=== PATIENT | male | born 1975 | race African-American/Black ===

== ENCOUNTER 2019-08-24 08:07 | Observation (INO) | payer OTHER ==
--- NOTE | 2019-08-24 10:28 | ER Document Report ---
ED GI Bleed / Rectal Pain - General Chief Complaint: Bloody Stools Stated Complaint: BLOODY STOOL/DIARRHEA/ABDOMINAL PAIN Time Seen by Provider: 08/24/19 10:16 Notes: 43-year-old -[place] male presents with 5-day history of intractable d iarrhea. States it started with loose stool and in the past couple of days noted that there is been blood mixed in with stool. Denies use of any NSAIDs or any anticoagulant medications. No prior history of colitis or abdominal issues. Denies any fever nausea without any vomiting is taking Pepto-Bismol and Imodium with no relief. She is having about 5 bowel movements per day. Feels generally weak but no loss of consciousness. Eyes any suspicion of any food or drinks that he may have taken. However he does note that on Thursday last week just before Riddhi was Thanksgiving dinner at work and the day after he began having symptoms of diarrhea. Denies any other medical problems. TRAVEL OUTSIDE OF THE [place] IN LAST 30 DAYS: No - Related Data Allergies/Adverse Reactions: No Known Allergies Allergy (Verified 08/24/19 11:14) Past Medical History - Social History Smoking Status: Never Smoker Chew tobacco use (# tins/day): No Frequency of alcohol use: None Drug Abuse: None Family History: None Patient has suicidal ideation: No Patient has homicidal ideation: No Review of Systems - Review of Systems Constitutional: Malaise, Weakness, Recent illness EENT: Other - Wears glasses Cardiovascular: No symptoms reported Respiratory: No symptoms reported Gastrointestinal: See HPI Genitourinary: No symptoms reported Male Genitourinary: No symptoms reported Musculoskeletal: No symptoms reported Skin: No symptoms reported Hematologic/Lymphatic: No symptoms reported Neurological/Psychological: No symptoms reported Physical Exam - Vital signs Vitals: Temp Pulse Resp BP Pulse Ox 98.8 F 73 20 116/75 100 08/24/19 08:18 08/24/19 08:18 08/24/19 08:18 08/24/19 08:18 08/24/19 08:18 Interpretation: Normal - General General appearance: Appears well, Alert - HEENT Head: Normocephalic, Atraumatic Eyes: Normal Pupils: PERRL - Respiratory Respiratory status: No respiratory distress Chest status: Nontender Breath sounds: Normal Chest palpation: Normal - Cardiovascular Rhythm: Regular Heart sounds: Normal auscultation Murmur: No - Abdominal Inspection: Normal Distension: No distension Bowel sounds: Normal Tenderness: Nontender Organomegaly: No organomegaly - Rectal Stool: Heme positive, Bloody Hemorrhoids: Internal Prostate: Normal - Back Back: Normal, Nontender - Extremities General upper extremity: Normal inspection, Nontender, Normal color, Normal ROM, Normal temperature General lower extremity: Normal inspection, Nontender, Normal color, Normal ROM, Normal temperature, Normal weight bearing. No: Tata's sign - Neurological Neuro grossly intact: Yes Cognition: Normal Orientation: AAOx4 Kem Coma Scale Eye Opening: Spontaneous [place] Coma Scale Verbal: Oriented [place] Coma Scale Motor: Obeys Commands Kem Coma Scale Total: 15 Speech: Normal Motor strength normal: LUE, RUE, LLE, RLE Sensory: Normal - Psychological Associated symptoms: Normal affect, Normal mood - Skin Skin Temperature: Warm Skin Moisture: Dry Skin Color: Normal Course - Re-evaluation Re-evalutation: 08/24/19 14:53 Patient remains hemodynamically stable. No active lower GI bleed at the moment. Episodic pains do come and go. - Vital Signs Vital signs: Temp Pulse Resp BP Pulse Ox 99.8 F 73 20 122/72 100 08/24/19 14:11 08/24/19 08:25 08/24/19 13:33 08/24/19 13:33 08/24/19 12:01 - Laboratory Result Diagrams: 08/24/19 09:18 08/24/19 09:18 Laboratory results interpreted by me: 08/24/19 08/24/19 08/24/19 09:18 09:18 11:00 Hgb 12.8 L Band Neutrophils % 1 L Lymphocytes % (Manual) 9 L Monocytes % (Manual) 23 H Abs Monocytes (Manual) 2.0 H Sodium 134.0 L Chloride 96 L Urine Protein 30 H Labs- Entire Visit 08/24/19 08/24/19 08/24/19 09:18 09:18 09:18 WBC 8.8 RBC 4.75 Hgb 12.8 L Hct 38.1 MCV 80 MCH 27.0 MCHC 33.6 RDW 13.2 Plt Count 294 Lymph % (Auto) Not Reportable [place] % (Auto) Not Reportable Eos % (Auto) Not Reportable Baso % (Auto) Not Reportable Absolute Neuts (auto) Not Reportable Absolute Lymphs (auto) Not Reportable Absolute Monos (auto) Not Reportable Absolute Eos (auto) Not Reportable Absolute Basos (auto) Not Reportable Total Counted 100 Seg Neutrophils % Not Reportable Seg Neuts % (Manual) 67 Band Neutrophils % 1 L Lymphocytes % (Manual) 9 L Monocytes % (Manual) 23 H Eosinophils % (Manual) 0 Basophils % (Manual) 0 Abs Neuts (Manual) 6.0 Abs Lymphs (Manual) 0.8 Abs Monocytes (Manual) 2.0 H Absolute Eos (Manual) 0.0 Abs Basophils (Manual) 0.0 Large Platelets PRESENT Platelet Comment ADEQUATE Polychromasia SLIGHT Sodium 134.0 L Potassium 4.3 Chloride 96 L Carbon Dioxide 29 Anion Gap 9 BUN 9 Creatinine 1.17 Est GFR ( Amer) > 60 Est GFR (MDRD) Non-Af > 60 Glucose 84 Lactic Acid (Sepsis) 0.9 Calcium 8.9 Total Bilirubin 0.3 Direct Bilirubin 0.1 Neonat Total Bilirubin Not Reportable Neonat Direct Bilirubin Not Reportable Neonat Indirect Bili Not Reportable AST 28 ALT 19 Alkaline Phosphatase 64 Total Protein 6.6 Albumin 3.6 Lipase 173.0 Urine Color Urine Appearance Urine pH Ur Specific [place] Urine Protein Urine Glucose (UA) Urine Ketones Urine Blood Urine Nitrite Urine Bilirubin Urine Urobilinogen Ur Leukocyte Esterase Urine WBC (Auto) Urine RBC (Auto) Urine Mucus (Auto) Urine Ascorbic Acid POC Stool Occult Blood Urine Opiates Screen Urine Methadone Screen Ur Barbiturates Screen Ur Phencyclidine Scrn Ur Amphetamines Screen U Benzodiazepines Scrn Urine Cocaine Screen U Marijuana (THC) Screen 08/24/19 08/24/19 08/24/19 09:30 11:00 11:00 WBC RBC Hgb Hct MCV MCH MCHC RDW Plt Count Lymph % (Auto) [place] % (Auto) Eos % (Auto) Baso % (Auto) Absolute Neuts (auto) Absolute Lymphs (auto) Absolute Monos (auto) Absolute Eos (auto) Absolute Basos (auto) Total Counted Seg Neutrophils % Seg Neuts % (Manual) Band Neutrophils % Lymphocytes % (Manual) Monocytes % (Manual) Eosinophils % (Manual) Basophils % (Manual) Abs Neuts (Manual) Abs Lymphs (Manual) Abs Monocytes (Manual) Absolute Eos (Manual) Abs Basophils (Manual) Large Platelets Platelet Comment Polychromasia Sodium Potassium Chloride Carbon Dioxide Anion Gap BUN Creatinine Est GFR ( Amer) Est GFR (MDRD) Non-Af Glucose Lactic Acid (Sepsis) Calcium Total Bilirubin Direct Bilirubin Neonat Total Bilirubin Neonat Direct Bilirubin Neonat Indirect Bili AST ALT Alkaline Phosphatase Total Protein Albumin Lipase Urine Color YELLOW Urine Appearance SLIGHTLY-CLOUDY Urine pH 7.0 Ur Specific [place] 1.018 Urine Protein 30 H Urine Glucose (UA) NEGATIVE Urine Ketones NEGATIVE Urine Blood NEGATIVE Urine Nitrite NEGATIVE Urine Bilirubin NEGATIVE Urine Urobilinogen NEGATIVE Ur Leukocyte Esterase NEGATIVE Urine WBC (Auto) 1 Urine RBC (Auto) 1 Urine Mucus (Auto) RARE Urine Ascorbic Acid NEGATIVE POC Stool Occult Blood POSITIVE Urine Opiates Screen NEGATIVE Urine Methadone Screen NEGATIVE Ur Barbiturates Screen NEGATIVE Ur Phencyclidine Scrn NEGATIVE Ur Amphetamines Screen NEGATIVE U Benzodiazepines Scrn NEGATIVE Urine Cocaine Screen NEGATIVE U Marijuana (THC) Screen NEGATIVE - Diagnostic Test Radiology reviewed: Image reviewed, Reports reviewed Discharge - Discharge Clinical Impression: Lower GI bleed, Colitis Condition: Good Disposition: ADMITTED INPATIENT Admitting Provider: Erica (Hospitalist) Unit Admitted: Medical Floor
[2019-08-24] MEDS ORDERED: PANTOPRAZOLE SODIUM 40 MG VIAL IV ONE (10:49)
[2019-08-24 10:58] LABS: HEMATOCRIT 38.1 % (37.9-51.0); HEMOGLOBIN 12.8 g/dL (13.5-17.0); MEAN CORPUSCULAR HGB CONC 33.6 g/dL (32.0-36.0); MEAN CORPUSCULAR VOLUME 80 fl (80-97); PLATELET COUNT 294 10^3/uL (150-450); RED BLOOD COUNT 4.75 10^6/uL (4.35-5.55); RED CELL DISTRIBUTION WIDTH 13.2 % (11.5-14.0); WHITE BLOOD COUNT 8.8 10^3/uL (4.0-10.5)
[2019-08-24 11:08] LABS: ALBUMIN 3.6 g/dL (3.5-5.0); ALKALINE PHOSPHATASE 64 U/L (38-126); ANION GAP 9 (5-19); ASPARTATE AMINO TRANSFERASE 28 U/L (17-59); BILIRUBIN,DIRECT 0.1 mg/dL (0.0-0.4); BILIRUBIN,TOTAL 0.3 mg/dL (0.2-1.3); BLOOD UREA NITROGEN 9 mg/dL (7-20); CALCIUM 8.9 mg/dL (8.4-10.2); CARBON DIOXIDE 29 mmol/L (22-30); CHLORIDE 96 mmol/L (98-107); GLUCOSE 84 mg/dL (75-110); POTASSIUM 4.3 mmol/L (3.6-5.0); TOTAL PROTEIN 6.6 g/dL (6.3-8.2)
[2019-08-24 11:22] LABS: ABSOLUTE LYMPHOCYTES# (MANUAL) 0.8 10^3/uL (0.5-4.7); BAND NEUTROPHILS % (MANUAL) 1 % (3-5); BASOPHILS % (MANUAL) 0 % (0-2); EOSINOPHILS % (MANUAL) 0 % (0-6); LYMPHOCYTES % (MANUAL) 9 % (13-45); MONOCYTES % (MANUAL) 23 % (3-13); SEGMENTED NEUTROPHILS % (MAN) 67 % (42-78); TOTAL CELLS COUNTED 100
[2019-08-24 11:23] LABS: PLATELET COMMENT ADEQUATE; PLATELET LARGE PRESENT; POLYCHROMASIA SLIGHT
[2019-08-24 11:37] LABS: APPEARANCE,URINE SLIGHTLY-CLOUDY; BILIRUBIN,URINE NEGATIVE (NEGATIVE); COLOR,URINE YELLOW; GLUCOSE, URINE NEGATIVE (NEGATIVE); KETONES,URINE NEGATIVE (NEGATIVE); LEUKOCYTE ESTERASE,URINE NEGATIVE (NEGATIVE); NITRITE,URINE NEGATIVE (NEGATIVE); PROTEIN,URINE 30 mg/dL (NEGATIVE); URINE SPECIFIC GRAVITY 1.018; UROBILINOGEN,URINE NEGATIVE mg/dL (<2.0)
[2019-08-24 11:53] LABS: URINE AMPHETAMINES SCREEN NEGATIVE; URINE BARBITURATES SCREEN NEGATIVE; URINE BENZODIAZEPINES SCREEN NEGATIVE; URINE COCAINE SCREEN NEGATIVE; URINE MARIJUANA (THC) SCREEN NEGATIVE; URINE METHADONE SCREEN NEGATIVE; URINE PHENCYCLIDINE SCREEN NEGATIVE
--- NOTE | 2019-08-24 13:57 | RADIOLOGY REPORT (SQ) ---
EXAM DESCRIPTION: CT ABD/PELVIS WITH IV ORAL COMPLETED DATE/TIME: 08/24/2019 1:34 pm REASON FOR STUDY: diarrhea COMPARISON: None. TECHNIQUE: CT scan of the abdomen and pelvis performed using helical scanning technique with dynamic intravenous contrast injection. No oral contrast. Images reviewed with lung, soft tissue, and bone windows. Reconstructed coronal and sagittal MPR images reviewed. Delayed images for evaluation of the urinary system also acquired. All images stored on PACS. All CT scanners at this facility use dose modulation, iterative reconstruction, and/or weight based d osing when appropriate to reduce radiation dose to as low as reasonably achievable (ALARA). [facility]: Dose Right [facility]: CareDose [facility]: Dose Right [facility]: Teradose 4D [facility]: Boosted Boards CONTRAST TYPE AND DOSE: Contrast/concentration: Isovue 350.00 mg/ml; Total Contrast Delivered: 80.0 ml; Total Saline Delivered: 36.8 ml RENAL FUNCTION: Creatinine 1.17 milligrams/deciliter RADIATION DOSE: CT Rad equipment meets quality standard of care and radiation dose reduction techniq ues were employed. CTDIvol: 4.8 - 5.0 mGy. DLP: 522 mGy-cm.. LIMITATIONS: None. FINDINGS: LOWER CHEST: No acute findings. LIVER: The morphology of the liver is non cirrhotic. The portal veins are patent. There is no hepat ic mass. SPLEEN: No splenomegaly or splenic mass. PANCREAS: No acute abnormality. GALLBLADDER: No abnormality that is apparent on CT. ADRENAL GLANDS: No mass or asymmetry. RIGHT KIDNEY AND URETER: No solid mass, hydronephrosis, nephrolithiasis, hydroureter or ureterolithia sis. LEFT KIDNEY AND URETER: No solid mass, hydronephrosis, nephrolithiasis, hydroureter or ureterolithias is. AORTA AND VESSELS: No aneurysm or dissection of the abdominal aorta. Suspected compression of the le ft renal vein between the aorta and the SMA with prominent collateral vessels. RETROPERITONEUM: No retroperitoneal adenopathy, hemorrhage or mass. BOWEL AND PERITONEAL CAVITY: Long segment of circumferential mural thickening that extends from the h epatic flexure to the rectum consistent with a nonspecific infectious, inflammatory or ischemic colit is. There is no bowel obstruction. APPENDIX: Normal. PELVIS: Trace amount of free fluid in the in the cul de sac. The urinary bladder is nondistended. ABDOMINAL WALL: No masses or hernias. BONES: No acute findings. OTHER: No other finding. IMPRESSION: 1. Long segment of circumferential mural thickening that extends from the hepatic flexu re to the rectum consistent with a nonspecific infectious, inflammatory or ischemic colitis. There is no bowel obstruction. 2. 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 TECHNICAL DOCUMENTATION: JOB ID: [id number] Quality ID # [id number]: Final reports with documentation of one or more dose reduction techniques (e.g., Au tomated exposure control, adjustment of the mA and/or kV according to patient size, use of iterative reconstruction technique) 2010 [employer]- All Rights Reserved Reading location - IP/workstation name: [email or web address]
[2019-08-24] MEDS ORDERED: ONDANSETRON HCL INJ/PF 4 MG/2 ML SDV IV PRN (16:02)
[2019-08-24] MEDS ORDERED: ACETAMINOPHEN 325 MG TABLET PO PRN (16:02)
[2019-08-24] MEDS ORDERED: MAG HYDROX/AL HYDROX/SIMETH SUSP 30 ML UDCUP PO PRN (16:02)
[2019-08-24] MEDS ORDERED: PROMETHAZINE HCL INJ 25 MG/1 ML VIAL IV PRN (16:02)
[2019-08-24] MEDS ORDERED: ALBUTEROL SULFATE 0.083% NEB 2.5 MG/3 ML AMPUL NEB PRN (16:02)
[2019-08-24] MEDS ORDERED: OXYCODONE-ACETAMINOPHEN 5-325 MG TABLET PO PRN (16:02)
--- NOTE | 2019-08-24 19:41 | PDOC H&P ---
History of Present Illness Admission Date/PCP: 08/24/19 15:38 Patient complains of: Abdominal pain History of Present Illness: KADEN MEIER JR is a 43 year old male with no significant past medical history who presents to the emergency department today with a complaint of subjective fever, abdominal discomfort, and frequent diarrhea x5 days now with scant bright red blood. Patient denies questionable dietary intake or known sick contacts. His symptoms have been unresponsive to [id number] preparations. Evaluation in the emergency department reveals stable vital signs, unremarkable laboratory evaluation, with CT imaging revealing long segment of circumferential colitis. He is provided IV fluids and referred to the hospitalist service for admission and management of the above-stated complaints of findings. Past Medical History Medical History: None Past Surgical History Past Surgical History: Reports: None Social History Information Source: Patient Smoking Status: Never Smoker Electronic Cigarette use?: No Frequency of Alcohol Use: None Hx Recreational Drug Use: No Hx Prescription Drug Abuse: No - Advance Directive Resuscitation Status: Full Code Family History Family History: Hyperlipidemia, Hypertension Parental Family History Reviewed: Yes Children Family History Reviewed: Yes Sibling(s) Family History Reviewed.: Yes Medication/Allergy Home Medications: No Home Medications 08/24/19 Allergies/Adverse Reactions: No Known Allergies Allergy (Verified 08/24/19 11:14) Review of Systems Constitutional: PRESENT: fatigue, fever(s). ABSENT: chills, headache(s), weight gain, weight loss Eyes: ABSENT: visual disturbances Ears: ABSENT: hearing changes Cardiovascular: ABSENT: chest pain, dyspnea on exertion, edema, orthropnea, palpitations Respiratory: ABSENT: cough, hemoptysis Gastrointestinal: PRESENT: abdominal pain, diarrhea, nausea. ABSENT: constipation, hematemesis, hematochezia, vomiting Genitourinary: ABSENT: dysuria, hematuria Musculoskeletal: ABSENT: joint swelling Integumentary: ABSENT: rash, wounds Neurological: ABSENT: abnormal gait, abnormal speech, confusion, dizziness, focal weakness, syncope Psychiatric: ABSENT: anxiety, depression, homidical ideation, suicidal ideation Endocrine: ABSENT: cold intolerance, heat intolerance, polydipsia, polyuria Hematologic/Lymphatic: ABSENT: easy bleeding, easy bruising Physical Exam Vital Signs: Temp Pulse Resp BP Pulse Ox 99.8 F 73 22 H 102/34 L 100 08/24/19 14:11 08/24/19 08:25 08/24/19 17:32 08/24/19 17:32 08/24/19 15:01 Intake & Output 08/23/19 08/24/19 08/25/19 06:59 06:59 06:59 Intake Total 90 Balance 90 Weight 72.3 kg General appearance: PRESENT: no acute distress, well-developed, well-nourished Head exam: PRESENT: atraumatic, normocephalic Eye exam: PRESENT: conjunctiva pink, EOMI, PERRLA. ABSENT: scleral icterus Ear exam: PRESENT: normal external ear exam Mouth exam: PRESENT: moist, tongue midline Neck exam: ABSENT: carotid bruit, JVD, lymphadenopathy, thyromegaly Respiratory exam: PRESENT: clear to auscultation luisa. ABSENT: rales, rhonchi, wheezes Cardiovascular exam: PRESENT: RRR. ABSENT: diastolic murmur, rubs, systolic murmur Pulses: PRESENT: normal dorsalis pedis pul Vascular exam: PRESENT: normal capillary refill GI/Abdominal exam: PRESENT: normal bowel sounds, soft, tenderness - Generalized. ABSENT: distended, guarding, mass, organolmegaly, rebound Rectal exam: PRESENT: deferred Extremities exam: PRESENT: full ROM. ABSENT: calf tenderness, clubbing, pedal edema Neurological exam: PRESENT: alert, awake, oriented to person, oriented to place, oriented to time, oriented to situation, CN II-XII grossly intact. ABSENT: motor sensory deficit Psychiatric exam: PRESENT: appropriate affect, normal mood. ABSENT: homicidal i deation, suicidal ideation Skin exam: PRESENT: dry, intact, warm. ABSENT: cyanosis, rash Results Laboratory Results: 08/24/19 09:18 08/24/19 09:18 08/24/19 08/24/19 08/24/19 09:18 09:18 11:00 WBC 8.8 RBC 4.75 Hgb 12.8 L Hct 38.1 MCV 80 MCH 27.0 MCHC 33.6 RDW 13.2 Plt Count 294 Seg Neutrophils % Not Reportable Sodium 134.0 L Potassium 4.3 Chloride 96 L Carbon Dioxide 29 Anion Gap 9 BUN 9 Creatinine 1.17 Est GFR ( Amer) > 60 Glucose 84 Calcium 8.9 Total Bilirubin 0.3 AST 28 Alkaline Phosphatase 64 Total Protein 6.6 Albumin 3.6 Lipase 173.0 Urine Color YELLOW Urine Appearance SLIGHTLY-CLOUDY Urine pH 7.0 Ur Specific [place] 1.018 Urine Protein 30 H Urine Glucose (UA) NEGATIVE Urine Ketones NEGATIVE Urine Blood NEGATIVE Urine Nitrite NEGATIVE Ur Leukocyte Esterase NEGATIVE Urine WBC (Auto) 1 Urine RBC (Auto) 1 Impressions: Abdomen/Pelvis CT 08/24/19 10:50 IMPRESSION: 1. Long segment of circumferential mural thickening that extends from the hepatic flexure to the rectum consistent with a nonspecific infectious, inflammatory or ischemic colitis. There is no bowel obstruction. 2. 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 Assessment and Plan - Diagnosis (1) Colitis Is this a current diagnosis for this admission?: Yes Plan: Patient is admitted to the medical floor. We will continue gentle IV fluids. He is empirically placed on IV Cipro and p.o. metronidazole. Blood and stool cultures pending. Antiemetics and analgesics as needed. Soft, low residue diet. Follow-up CBC. (2) Diarrhea Qualifiers: Diarrhea type: unspecified type Qualified Code(s): R19.7 - Diarrhea, unspecified Is this a current diagnosis for this admission?: Yes Plan: Secondary to #1. Evaluation management as above. Once a stool studies are negative and infectious process has been ruled out, can consider Imodium or Lomotil. (3) Abdominal pain Is this a current diagnosis for this admission?: Yes Plan: Secondary to #1. Analgesics as needed. Evaluation management as above. (4) Lower GI bleed Is this a current diagnosis for this admission?: Yes Plan: Secondary to #1. Follow-up H&H. Remaining evaluation management as above. - Time Time Spent with patient: 35 or more minutes Medications reviewed and adjusted accordingly: Yes Anticipated discharge: Home Within: within 24 hours
[2019-08-24] MEDS: NORMAL SALINE 1000 ML 1,000 ML IV PRN (21:56)
[2019-08-24] MEDS: CIPROFLOXACIN 400 MG/D5W RTU 400 MG/200 ML RTUPB IV SCH (21:59)
[2019-08-24] MEDS: METRONIDAZOLE 500 MG TABLET PO SCH (22:00)
[2019-08-24] MEDS: HEPARIN SOD (PORCINE) 5,000 UNIT/ML 1 ML VIAL SUBCUT SCH (22:02)
[2019-08-25] MEDS ORDERED: INFLUENZA QUAD (6MOS+) 2019-20 VAC 0.5 ML SYR IM ONE (01:09)
[2019-08-25] MEDS: HEPARIN SOD (PORCINE) 5,000 UNIT/ML 1 ML VIAL SUBCUT SCH ×3 (05:10→21:45)
[2019-08-25] MEDS: METRONIDAZOLE 500 MG TABLET PO SCH ×3 (05:11→23:17)
[2019-08-25] MEDS: PANTOPRAZOLE SODIUM 20 MG TABLET.DR PO SCH (05:11)
[2019-08-25] MEDS: NORMAL SALINE 1000 ML 1,000 ML IV PRN ×2 (07:00→21:50)
[2019-08-25 07:02] LABS: HEMATOCRIT 35.7 % (37.9-51.0); HEMOGLOBIN 12.2 g/dL (13.5-17.0); MEAN CORPUSCULAR HEMOGLOBIN 26.9 pg (27.0-33.4); MEAN CORPUSCULAR HGB CONC 34.1 g/dL (32.0-36.0); MEAN CORPUSCULAR VOLUME 79 fl (80-97); PLATELET COUNT 277 10^3/uL (150-450); RED BLOOD COUNT 4.52 10^6/uL (4.35-5.55); WHITE BLOOD COUNT 7.2 10^3/uL (4.0-10.5)
[2019-08-25 07:23] LABS: ANION GAP 8 (5-19); BLOOD UREA NITROGEN 7 mg/dL (7-20); CALCIUM 8.5 mg/dL (8.4-10.2); CARBON DIOXIDE 26 mmol/L (22-30); CHLORIDE 102 mmol/L (98-107); GLUCOSE 83 mg/dL (75-110); POTASSIUM 4.3 mmol/L (3.6-5.0)
[2019-08-25] MEDS: CIPROFLOXACIN 400 MG/D5W RTU 400 MG/200 ML RTUPB IV SCH ×2 (09:40→21:50)
[2019-08-25] MEDS ORDERED: ONDANSETRON HCL INJ/PF 4 MG/2 ML SDV IV PRN (14:30)
[2019-08-25] MEDS ORDERED: PROMETHAZINE HCL INJ 25 MG/1 ML VIAL IV PRN (14:30)
--- NOTE | 2019-08-25 19:27 | PDOC PROGRESS REPORT ---
Subjective Progress Note for:: 08/25/19 Subjective:: The patient is a 43-year-old male without significant past medical history who was admitted 08/24/2019 for colitis. Patient was seen on morning rounds. He was found resting in bed comfortably. He does report continued abdominal discomfort, slight nausea, and frequent loose stools. He does report that the frequency of stools has decreased to today. He also noted that his last bowel movement did not have bright red blood. Overall, he is feeling somewhat better and is tolerating 100% of meals. He denies fever, chills, chest pain, palpitations, dyspnea, orthopnea, emesis. He has no other questions or concerns at this time. No concerns per nursing. Reason For Visit: COLITIS Physical Exam Vital Signs: Temp Pulse Resp BP Pulse Ox 98.6 F 61 18 138/73 H 100 08/25/19 16:00 08/25/19 16:00 08/25/19 16:00 08/25/19 16:00 08/25/19 16:00 Intake & Output 08/24/19 08/25/19 08/26/19 06:59 06:59 06:59 Intake Total 1710 1210 Balance 1710 1210 Weight 70.6 kg 70.6 kg General appearance: PRESENT: no acute distress, well-developed, well-nourished Head exam: PRESENT: atraumatic, normocephalic Eye exam: PRESENT: conjunctiva pink, EOMI, PERRLA. ABSENT: scleral icterus Ear exam: PRESENT: normal external ear exam Mouth exam: PRESENT: moist, tongue midline Neck exam: ABSENT: carotid bruit, JVD, lymphadenopathy, thyromegaly Respiratory exam: PRESENT: clear to auscultation luisa. ABSENT: rales, rhonchi, wheezes Cardiovascular exam: PRESENT: RRR. ABSENT: diastolic murmur, rubs, systolic murmur Pulses: PRESENT: normal dorsalis pedis pul Vascular exam: PRESENT: normal capillary refill GI/Abdominal exam: PRESENT: normal bowel sounds, soft. ABSENT: distended, guarding, mass, organolmegaly, rebound, tenderness Rectal exam: PRESENT: deferred Extremities exam: PRESENT: full ROM. ABSENT: calf tenderness, clubbing, pedal edema Neurological exam: PRESENT: alert, awake, oriented to person, oriented to place, oriented to time, oriented to situation, CN II-XII grossly intact. ABSENT: motor sensory deficit Psychiatric exam: PRESENT: appropriate affect, normal mood. ABSENT: homicidal ideation, suicidal ideation Skin exam: PRESENT: dry, intact, warm. ABSENT: cyanosis, rash Results Laboratory Results: 08/25/19 06:48 08/25/19 06:48 08/25/19 08/25/19 06:48 06:48 WBC 7.2 RBC 4.52 Hgb 12.2 L Hct 35.7 L MCV 79 L MCH 26.9 L MCHC 34.1 RDW 13.0 Plt Count 277 Sodium 136.3 L Potassium 4.3 Chloride 102 Carbon Dioxide 26 Anion Gap 8 BUN 7 Creatinine 1.14 Est GFR ( Amer) > 60 Glucose 83 Calcium 8.5 Impressions: Abdomen/Pelvis CT 08/24/19 10:50 IMPRESSION: 1. Long segment of circumferential mural thickening that extends from the hepatic flexure to the rectum consistent with a nonspecific infectious, inflammatory or ischemic colitis. There is no bowel obstruction. 2. 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 Assessment and Plan - Diagnosis (1) Colitis Is this a current diagnosis for this admission?: Yes Plan: Slight improvement today; decreased abdominal discomfort and stool output. Blood cultures are pending. Stool cultures pending. Patient is admitted to the medical floor. We will continue gentle IV fluids. He is empirically placed on IV Cipro and p.o. metronidazole. Antiemetics and analgesics as needed. Soft, low residue diet. Follow-up CBC. (2) Diarrhea Qualifiers: Diarrhea type: unspecified type Qualified Code(s): R19.7 - Diarrhea, unspecified Is this a current diagnosis for this admission?: Yes Plan: Secondary to #1. Evaluation management as above. Once a stool studies are negative and infectious process has been ruled out, can consider Imodium or Lomotil. (3) Abdominal pain Is this a current diagnosis for this admission?: Yes Plan: Secondary to #1. Analgesics as needed. Evaluation management as above. (4) Lower GI bleed Is this a current diagnosis for this admission?: Yes Plan: Secondary to #1. Follow-up H&H. Overall stable. Remaining evaluation management as above. - Time Time Spent with patient: 15-24 minutes Medications reviewed and adjusted accordingly: Yes Anticipated discharge: Home Within: within 24 hours
[2019-08-26] MEDS: HEPARIN SOD (PORCINE) 5,000 UNIT/ML 1 ML VIAL SUBCUT SCH ×2 (06:26→13:28)
[2019-08-26] MEDS: PANTOPRAZOLE SODIUM 20 MG TABLET.DR PO SCH (06:27)
[2019-08-26] MEDS: METRONIDAZOLE 500 MG TABLET PO SCH ×2 (06:27→13:38)
[2019-08-26 06:47] LABS: HEMATOCRIT 35.1 % (37.9-51.0); HEMOGLOBIN 11.8 g/dL (13.5-17.0); MEAN CORPUSCULAR HEMOGLOBIN 26.9 pg (27.0-33.4); MEAN CORPUSCULAR HGB CONC 33.7 g/dL (32.0-36.0); MEAN CORPUSCULAR VOLUME 80 fl (80-97); PLATELET COUNT 291 10^3/uL (150-450); RED BLOOD COUNT 4.41 10^6/uL (4.35-5.55); WHITE BLOOD COUNT 6.7 10^3/uL (4.0-10.5)
[2019-08-26 07:13] LABS: BLOOD UREA NITROGEN 8 mg/dL (7-20); CALCIUM 8.7 mg/dL (8.4-10.2); CHLORIDE 106 mmol/L (98-107); GLUCOSE 84 mg/dL (75-110); POTASSIUM 4.7 mmol/L (3.6-5.0)
[2019-08-26 07:20] LABS: ANION GAP 6 (5-19); CARBON DIOXIDE 27 mmol/L (22-30)
[2019-08-26] MEDS: NORMAL SALINE 1000 ML 1,000 ML IV PRN (07:31)
[2019-08-26] MEDS: CIPROFLOXACIN 400 MG/D5W RTU 400 MG/200 ML RTUPB IV SCH (10:20)
[2019-08-26 16:45] VITALS: BP 117/77
--- NOTE | 2019-08-30 12:04 | PDOC DISCHARGE SUMMARY ---
Impression - Admit/DC Date/PCP Admission Date/Primary Care Provider: 08/24/19 15:38 Discharge Date: 08/26/19 - Discharge Diagnosis (1) Colitis Is this a current diagnosis for this admission?: Yes (2) Diarrhea Is this a current diagnosis for this admission?: Yes (3) Abdominal pain Is this a current diagnosis for this admission?: Yes (4) Lower GI bleed Is this a current diagnosis for this admission?: Yes (5) Campylobacter diarrhea Is this a current diagnosis for this admission?: Yes - Additional Information Resuscitation Status: Full Code Discharge Diet: Regular, Other (Comments) Discharge Activity: Activity As Tolerated, Balance Activity w/Rest, Slowly Increase Activity Referrals: [facility] [Outside] - 09/01/19 11:30 am (Follow up within 1 week.) Prescriptions: Ciprofloxacin HCl [Cipro 750 mg Tablet] 750 mg PO BID #10 tablet Home Medications: Acetaminophen [Tylenol 325 mg Tablet] 650 mg PO Q4HP PRN tablet 08/26/19 Ciprofloxacin HCl [Cipro 750 mg Tablet] 750 mg PO BID #10 tablet 08/26/19 History of Present Illiness History of Present Illness: KADEN MEIER JR is a 43 year old male with no significant past medical history who presents to the emergency department today with a complaint of subjective fever, abdominal discomfort, and frequent diarrhea x5 days now with scant bright red blood. Patient denies questionable dietary intake or known sick contacts. His symptoms have been unresponsive to [id number] preparations. Evaluation in the emergency department reveals stable vital signs, unremarkable laboratory evaluation, with CT imaging revealing long segment of circumferential colitis. He is provided IV fluids and referred to the hospitalist service for admission and management of the above-stated complaints of findings. Hospital Course Hospital Course: The patient was admitted to the medical floor. He was provided generous IV fluid resuscitation and started on a soft, low residue diet which he has tolerated well. He was empirically placed on IV ciprofloxacin and p.o. Flagyl for treatment of colitis. His symptoms gradually improved, however, he does continue to have scant bright red blood per rectum with soft stool. Blood cultures are negative. Will culture is growing Campylobacter jejuni. The patient is discharged to home in stable condition. He is instructed to complete his full course of p.o. Cipro. He is encouraged to drink plenty of water and to eat as tolerated. He is advised of the importance of good hand drink. We discussed the continued bright red blood per rectum and warning signs that should prompt him to return to the emergency department. He was placed out of work until he has completed the full course of ciprofloxacin. He is advised to answer any phone calls that he may receive from the health department and is assured that this is for tracking purposes and not due to any wrongdoing on his part. He is encouraged to follow-up with his primary care provider within 1 week and to return to the emergency department as needed for concerning symptoms. Physical Exam Vital Signs: Temp Pulse Resp BP Pulse Ox 98.3 F 53 L 16 117/77 99 08/26/19 16:42 08/26/19 16:42 08/26/19 16:42 08/26/19 16:42 08/26/19 16:42 General appearance: PRESENT: no acute distress, well-developed, well-nourished Head exam: PRESENT: atraumatic, normocephalic Eye exam: PRESENT: conjunctiva pink, EOMI, PERRLA. ABSENT: scleral icterus Ear exam: PRESENT: normal external ear exam Mouth exam: PRESENT: moist, tongue midline Neck exam: ABSENT: carotid bruit, JVD, lymphadenopathy, thyromegaly Respiratory exam: PRESENT: clear to auscultation luisa. ABSENT: rales, rhonchi, wheezes Cardiovascular exam: PRESENT: RRR. ABSENT: diastolic murmur, rubs, systolic murmur Pulses: PRESENT: normal dorsalis pedis pul Vascular exam: PRESENT: normal capillary refill GI/Abdominal exam: PRESENT: normal bowel sounds, soft. ABSENT: distended, guarding, mass, organolmegaly, rebound, tenderness Rectal exam: PRESENT: deferred, heme (+) stool Extremities exam: PRESENT: full ROM. ABSENT: calf tenderness, clubbing, pedal edema Neurological exam: PRESENT: alert, awake, oriented to person, oriented to place, oriented to time, oriented to situation, CN II-XII grossly intact. ABSENT: motor sensory deficit Psychiatric exam: PRESENT: appropriate affect, normal mood. ABSENT: homicidal ideation, suicidal ideation Skin exam: PRESENT: dry, intact, warm. ABSENT: cyanosis, rash Results Laboratory Results: WBC 6.7 10^3/uL (4.0-10.5) 08/26/19 06:18 RBC 4.41 10^6/uL (4.35-5.55) 08/26/19 06:18 Hgb 11.8 g/dL (13.5-17.0) L 08/26/19 06:18 Hct 35.1 % (37.9-51.0) L 08/26/19 06:18 MCV 80 fl (80-97) 08/26/19 06:18 MCH 26.9 pg (27.0-33.4) L 08/26/19 06:18 MCHC 33.7 g/dL (32.0-36.0) 08/26/19 06:18 RDW 13.0 % (11.5-14.0) 08/26/19 06:18 Plt Count 291 10^3/uL (150-450) 08/26/19 06:18 Lymph % (Auto) Not Reportable 08/24/19 09:18 Bosque % (Auto) Not Reportable 08/24/19 09:18 Eos % (Auto) Not Reportable 08/24/19 09:18 Baso % (Auto) Not Reportable 08/24/19 09:18 Absolute Neuts (auto) Not Reportable 08/24/19 09:18 Absolute Lymphs (auto) Not Reportable 08/24/19 09:18 Absolute Monos (auto) Not Reportable 08/24/19 09:18 Absolute Eos (auto) Not Reportable 08/24/19 09:18 Absolute Basos (auto) Not Reportable 08/24/19 09:18 Total Counted 100 08/24/19 09:18 Seg Neutrophils % Not Reportable 08/24/19 09:18 Seg Neuts % (Manual) 67 % (42-78) 08/24/19 09:18 Band Neutrophils % 1 % (3-5) L 08/24/19 09:18 Lymphocytes % (Manual) 9 % (13-45) L 08/24/19 09:18 Monocytes % (Manual) 23 % (3-13) H 08/24/19 09:18 Eosinophils % (Manual) 0 % (0-6) 08/24/19 09:18 Basophils % (Manual) 0 % (0-2) 08/24/19 09:18 Abs Neuts (Manual) 6.0 10^3/uL (1.7-8.2) 08/24/19 09:18 Abs Lymphs (Manual) 0.8 10^3/uL (0.5-4.7) 08/24/19 09:18 Abs Monocytes (Manual) 2.0 10^3/uL (0.1-1.4) H 08/24/19 09:18 Absolute Eos (Manual) 0.0 10^3/uL (0.0-0.6) 08/24/19 09:18 Abs Basophils (Manual) 0.0 10^3/uL (0.0-0.2) 08/24/19 09:18 Large Platelets PRESENT 08/24/19 09:18 Platelet Comment ADEQUATE 08/24/19 09:18 Polychromasia SLIGHT 08/24/19 09:18 Sodium 138.5 mmol/L (137-145) 08/26/19 06:18 Potassium 4.7 mmol/L (3.6-5.0) 08/26/19 06:18 Chloride 106 mmol/L (98-107) 08/26/19 06:18 Carbon Dioxide 27 mmol/L (22-30) 08/26/19 06:18 Anion Gap 6 (5-19) 08/26/19 06:18 BUN 8 mg/dL (7-20) 08/26/19 06:18 Creatinine 1.17 mg/dL (0.52-1.25) 08/26/19 06:18 Est GFR ( Amer) > 60 (>60) 08/26/19 06:18 Est GFR (MDRD) Non-Af > 60 (>60) 08/26/19 06:18 Glucose 84 mg/dL (75-110) 08/26/19 06:18 Lactic Acid (Sepsis) 0.9 mmol/L (0.7-2.1) 08/24/19 09:18 Calcium 8.7 mg/dL (8.4-10.2) 08/26/19 06:18 Total Bilirubin 0.3 mg/dL (0.2-1.3) 08/24/19 09:18 Direct Bilirubin 0.1 mg/dL (0.0-0.4) 08/24/19 09:18 Neonat Total Bilirubin Not Reportable 08/24/19 09:18 Neonat Direct Bilirubin Not Reportable 08/24/19 09:18 Neonat Indirect Bili Not Reportable 08/24/19 09:18 AST 28 U/L (17-59) 08/24/19 09:18 ALT 19 U/L (<50) 08/24/19 09:18 Alkaline Phosphatase 64 U/L (38-126) 08/24/19 09:18 Total Protein 6.6 g/dL (6.3-8.2) 08/24/19 09:18 Albumin 3.6 g/dL (3.5-5.0) 08/24/19 09:18 Lipase 173.0 U/L (23-300) 08/24/19 09:18 Urine Color YELLOW 08/24/19 11:00 Urine Appearance SLIGHTLY-CLOUDY 08/24/19 11:00 Urine pH 7.0 (5.0-9.0) 08/24/19 11:00 Ur Specific [place] 1.018 08/24/19 11:00 Urine Protein 30 mg/dL (NEGATIVE) H 08/24/19 11:00 Urine Glucose (UA) NEGATIVE mg/dL (NEGATIVE) 08/24/19 11:00 Urine Ketones NEGATIVE mg/dL (NEGATIVE) 08/24/19 11:00 Urine Blood NEGATIVE (NEGATIVE) 08/24/19 11:00 Urine Nitrite NEGATIVE (NEGATIVE) 08/24/19 11:00 Urine Bilirubin NEGATIVE (NEGATIVE) 08/24/19 11:00 Urine Urobilinogen NEGATIVE mg/dL (<2.0) 08/24/19 11:00 Ur Leukocyte Esterase NEGATIVE (NEGATIVE) 08/24/19 11:00 Urine WBC (Auto) 1 /HPF 08/24/19 11:00 Urine RBC (Auto) 1 /HPF 08/24/19 11:00 Urine Mucus (Auto) RARE /LPF 08/24/19 11:00 Urine Ascorbic Acid NEGATIVE (NEGATIVE) 08/24/19 11:00 POC Stool Occult Blood POSITIVE (NEGATIVE) 08/24/19 09:30 Urine Opiates Screen NEGATIVE 08/24/19 11:00 Urine Methadone Screen NEGATIVE 08/24/19 11:00 Ur Barbiturates Screen NEGATIVE 08/24/19 11:00 Ur Phencyclidine Scrn NEGATIVE 08/24/19 11:00 Ur Amphetamines Screen NEGATIVE 08/24/19 11:00 U Benzodiazepines Scrn NEGATIVE 08/24/19 11:00 Urine Cocaine Screen NEGATIVE 08/24/19 11:00 U Marijuana (THC) Screen NEGATIVE 08/24/19 11:00 Impressions: Abdomen/Pelvis CT 08/24/19 10:50 IMPRESSION: 1. Long segment of circumferential mural thickening that extends from the hepatic flexure to the rectum consistent with a nonspecific infectious, inflammatory or ischemic colitis. There is no bowel obstruction. 2. 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 Plan Plan of Treatment: The patient is discharged home in stable condition. He is instructed to complete his antibiotic therapy. He is educated on the importance of hand hygiene. He is advised to drink plenty of water and eat as tolerated. He is encouraged to follow-up with his primary care provider within 1 week and to return to the emergency department as needed for concerning symptoms. Time Spent: Greater than 30 Minutes Stroke Is this a Stroke Patient?: No Acute Heart Failure - Is this a Heart Failure Patient?: No
== END 2019-08-26 17:27 | disposition home or self-care (01) ==
LOC: ER 08:07 → EH 15:38 → INTOOBSV 15:38 → 4S 20:51
PROVIDERS: ADMIT Family Medicine; ATTEND Family Medicine
DX: K52.9 Noninfective gastroenteritis and colitis, unspecified (principal); A04.5 Campylobacter enteritis; R10.9 Unspecified abdominal pain; K62.5 Hemorrhage of anus and rectum; Z23 Encounter for immunization
CPT/HCPCS: 99285; 96374; 36415 ×3; 87040; 87045; 87205; 83690; 85025; 85027 ×2; 87077; 80048 ×2; 80053; 81001; 80307; 83605; 74177; 90686; G0378 ×4; C9113; J7030 ×3; J0744 ×3; J3490 ×2

== ENCOUNTER 2019-09-06 20:27 | Emergency (ER) | payer OTHER ==
--- NOTE | 2019-09-06 21:23 | ER Document Report ---
ED Medical Screen (RME) - General Chief Complaint: Bloody Stools Stated Complaint: BLOOD IN STOOL/ABDOMINAL PAIN Time Seen by Provider: 09/06/19 21:09 Notes: 43-year-old male with recent admission for colitis presents to the emergency department with weakness, abdominal cramping and hematochezia that he noticed this morning. Patient states that he just finished antibiotics from his previous admission. Patient states that he notices blood in his stool when he has the lower abdominal cramping and if he has a bowel movement when he is not cramping he does not notice blood but his stools are loose. Denies fevers or chills but temperature measured at 100.1 here in the emergency department. Denies nausea or vomiting. Exam: Well-appearing in no acute distress, no pallor noted on exam, bowel sounds heard but abdominal exam very limited in triage I have greeted and performed a rapid initial assessment of this patient. A comprehensive ED assessment and evaluation of the patient, analysis of test results and completion of medical decision making process will be conducted by an additional ED providers. TRAVEL OUTSIDE OF THE [place] IN LAST 30 DAYS: No - Related Data Allergies/Adverse Reactions: No Known Allergies Allergy (Verified 09/06/19 21:06) Physical Exam - Vital signs Vitals: Temp Pulse Resp BP Pulse Ox 100.1 F 85 18 110/76 99 09/06/19 20:56 09/06/19 20:56 09/06/19 20:56 09/06/19 20:56 09/06/19 20:56 Course - Vital Signs Vital signs: Temp Pulse Resp BP Pulse Ox 100.1 F 85 18 110/76 99 09/06/19 21:06 09/06/19 21:06 09/06/19 21:06 09/06/19 21:06 09/06/19 21:06
[2019-09-06 22:06] LABS: ABSOLUTE BASOPHILS # (AUTO) 0.1 10^3/uL (0.0-0.2); ABSOLUTE EOSINOPHILS # (AUTO) 0.1 10^3/uL (0.0-0.6); ABSOLUTE LYMPHOCYTES (AUTO) 1.7 10^3/uL (0.5-4.7); ABSOLUTE NEUT (AUTO) 8.1 10^3/uL (1.7-8.2); APPEARANCE,URINE CLEAR; BASOPHILS % (AUTO) 0.8 % (0-2); BILIRUBIN,URINE NEGATIVE (NEGATIVE); COLOR,URINE YELLOW; EOSINOPHILS % (AUTO) 0.5 % (0-6); GLUCOSE, URINE NEGATIVE (NEGATIVE); HEMATOCRIT 38.9 % (37.9-51.0); KETONES,URINE NEGATIVE (NEGATIVE); LEUKOCYTE ESTERASE,URINE NEGATIVE (NEGATIVE); LYMPHOCYTES % (AUTO) 15.6 % (13-45); MEAN CORPUSCULAR HEMOGLOBIN 26.8 pg (27.0-33.4); MEAN CORPUSCULAR HGB CONC 33.4 g/dL (32.0-36.0); MEAN CORPUSCULAR VOLUME 80 fl (80-97); MONOCYTES % (AUTO) 9.2 % (3-13); NITRITE,URINE NEGATIVE (NEGATIVE); PLATELET COUNT 327 10^3/uL (150-450); PROTEIN,URINE NEGATIVE (NEGATIVE); RED BLOOD COUNT 4.87 10^6/uL (4.35-5.55); RED CELL DISTRIBUTION WIDTH 14.1 % (11.5-14.0); SEGMENTED NEUTROPHILS % (AUTO) 73.9 % (42-78); TOTAL CELLS COUNTED % (AUTO) 100 %; URINE SPECIFIC GRAVITY 1.015; UROBILINOGEN,URINE NEGATIVE mg/dL (<2.0)
[2019-09-06 22:31] LABS: ALKALINE PHOSPHATASE 73 U/L (38-126); ANION GAP 11 (5-19); ASPARTATE AMINO TRANSFERASE 79 U/L (17-59); BILIRUBIN,TOTAL 0.4 mg/dL (0.2-1.3); BLOOD UREA NITROGEN 11 mg/dL (7-20); CALCIUM 9.5 mg/dL (8.4-10.2); CARBON DIOXIDE 26 mmol/L (22-30); CHLORIDE 97 mmol/L (98-107); GLUCOSE 90 mg/dL (75-110); POTASSIUM 4.4 mmol/L (3.6-5.0); TOTAL PROTEIN 7.3 g/dL (6.3-8.2)
[2019-09-07] MEDS ORDERED: ONDANSETRON 4 MG TAB.RAPDIS PO ONE (02:32)
[2019-09-07] MEDS ORDERED: AZITHROMYCIN 250 MG TABLET PO ONE (02:32)
--- NOTE | 2019-09-07 02:38 | ER Document Report ---
ED General - General Chief Complaint: Bloody Stools Stated Complaint: BLOOD IN STOOL/ABDOMINAL PAIN Time Seen by Provider: 09/06/19 21:09 Primary Care Provider: [facility] [Primary Care Provider] - Follow up as needed Notes: 43 year old male arrives with abdominal cramps/ pain and loose watery stool with blood. 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 Admitted here earlier in the month with similar and had + culture for campylobacter. Perscribed cipro at discharge and has been taking and finished medicine. No fever or chills. Lives with parents. No high risk behavior for HIV. TRAVEL OUTSIDE OF THE [place] IN LAST 30 DAYS: No - Related Data Allergies/Adverse Reactions: No Known Allergies Allergy (Verified 09/06/19 21:06) Past Medical History - Social History Smoking Status: Never Smoker Family History: Hyperlipidemia, Hypertension Patient has suicidal ideation: No Patient has homicidal ideation: No Review of Systems - Review of Systems Constitutional: No symptoms reported EENT: No symptoms reported Cardiovascular: No symptoms reported Respiratory: No symptoms reported Gastrointestinal: See HPI, Diarrhea, Blood streaked bowels Genitourinary: No symptoms reported Male Genitourinary: No symptoms reported Musculoskeletal: No symptoms reported Skin: No symptoms reported Hematologic/Lymphatic: No symptoms reported Neurological/Psychological: No symptoms reported Physical Exam - Vital signs Vitals: Temp Pulse Resp BP Pulse Ox 100.1 F 85 18 110/76 99 09/06/19 20:56 09/06/19 20:56 09/06/19 20:56 09/06/19 20:56 09/06/19 20:56 Interpretation: Normal - General General appearance: Appears well, Alert - HEENT Head: Normocephalic, Atraumatic Eyes: Normal Pupils: PERRL - Respiratory Respiratory status: No respiratory distress Chest status: Nontender Breath sounds: Normal Chest palpation: Normal - Cardiovascular Rhythm: Regular Heart sounds: Normal auscultation Murmur: No - Abdominal Inspection: Normal Distension: No distension Bowel sounds: Normal Tenderness: Nontender Organomegaly: No organomegaly - Back Back: Normal, Nontender - Extremities General upper extremity: Normal inspection, Nontender, Normal color, Normal ROM, Normal temperature General lower extremity: Normal inspection, Nontender, Normal color, Normal ROM, Normal temperature, Normal weight bearing. 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 Definately gets splashed in mouth with processing debris including feces. Cipro has increasing resistance and will cover with zithromax here. Additionally discussed importance of using mask if he chooses to continue the same work. He expressed understanding. - Vital Signs Vital signs: Temp Pulse Resp BP Pulse Ox 100.1 F 85 18 110/76 99 09/06/19 21:06 09/06/19 21:06 09/06/19 21:06 09/06/19 21:06 09/06/19 21:06 - Laboratory Result Diagrams: 09/06/19 21:34 09/06/19 21:34 Laboratory results interpreted by me: 09/06/19 09/06/19 09/06/19 21:34 21:34 21:34 WBC 11.0 H Hgb 13.0 L MCH 26.8 L RDW 14.1 H Sodium 134.3 L Chloride 97 L AST 79 H Urine Ascorbic Acid 20 H Discharge - Discharge Clinical Impression: Colitis Condition: Good Disposition: HOME, SELF-CARE Instructions: Antispasmodics ([facility]) Additional Instructions: Keep the follow up appt with the clinic as we discussed. If you choose to continue the same work wear a mask covering your eyes and mouth and practice outstanding hygiene otherwise - handwashing and showering after work. Take the medicine as directed. Please return here for any problems or any concerns. Referrals: [facility] [Primary Care Provider] - Follow up as needed
[2019-09-07 02:55] VITALS: BP 129/80
== END 2019-09-07 02:53 | disposition home or self-care (01) ==
LOC: ER 20:27
DX: K52.9 Noninfective gastroenteritis and colitis, unspecified (principal); R10.9 Unspecified abdominal pain; K92.1 Melena
CPT/HCPCS: 99284; 36415; 85025; 80053; 81001; S0119